=== PATIENT | male | born 1965 | race Caucasian/White ===

== ENCOUNTER 2020-05-07 14:01 | Emergency (ER) | payer BC, SELFPAY ==
[2020-05-07 14:11] VITALS: BP 127/81; PULSE 102; RESP 14; TEMP 36.1; O2SAT 100
--- NOTE | 2020-05-07 14:16 | ED.GENADULT ---
HPI - General Adult General Chief complaint: Upper Respiratory Infection Stated complaint: Sinus Infection Time Seen by Provider: 05/07/20 14:16 Source: patient Mode of arrival: ambulatory Limitations: no limitations History of Present Illness HPI narrative: 54-year-old male patient presents to the [facility] with complaints of a cough for the past 3 days. Patient states he is also had a little bit of congestion and runny nose. Denies fevers, body aches or chills. Denies any ear pain. Denies any sore throat. Denies any chest pain, shortness of breath, abdominal pain, nausea, vomiting or diarrhea. Patient denies getting a flu shot this year. Patient states he has been taking some [id number] Mucinex for his symptoms. Patient denies being around anybody with Covid that he is aware of. Related Data Home Medications Medication Instructions Recorded Confirmed No Home Medications 05/07/20 05/07/20 Allergies Allergy/AdvReac Type Severity Reaction Status Date / Time No Known Allergies Allergy Verified 05/07/20 14:20 Review of Systems Review of Systems: Narrative: CONSTITUTIONAL: Denies fever, chills, or sweats. EYES: Denies visual changes, redness, or discharge. ENT: Positive rhinorrhea, congestion, denies sore throat, or otalgia. CARDIOVASCULAR: Denies chest pain, palpitations, or edema. RESPIRATORY: Positive cough, denies dyspnea. GASTROINTESTINAL: Denies abdominal pain, nausea, vomiting, or diarrhea. GENITOURINARY: Denies dysuria or hematuria. SKIN: Denies rash or itching. MUSCULOSKELETAL: Denies back pain, joint pain, or myalgia. NEUROLOGIC: Denies headache, numbness, or weakness. PSYCHIATRIC: Denies anxiety or depression. [facility] Past Medical History Medical History (Updated 05/07/20 @ 14:28 by BREANNA Banks) No significant past medical history Comments At the time of my signature I agree with nursing past medical history, surgical, social, and family history. There is no relevant family history pertinent to the presenting complaint. Exam Narrative: Exam Narrative: GENERAL: Well-appearing, well-nourished, and in no acute distress. HEAD: Normocephalic, atraumatic. EYES: PERRLA and EOMI. ENT: Nares with erythema and edema noted bilaterally, no rhinorrhea or epistaxis. Mucous membranes moist. Posterior pharynx with no erythema, tonsillar joint, exudates or lesions present. Bilateral TMs are clear no erythema or foreign bodies to the canal. NECK: Supple. No lymphadenopathy CHEST: Clear to auscultation. No respiratory distress. HEART: Regular rate and rhythm. No murmur heard. Normal peripheral pulses. ABDOMEN: Soft, nontender, nondistended, normal active bowel sounds. EXTREMITIES: Normal range of motion. No edema. SKIN: Warm, dry, no rash. NEURO: No focal deficits. Alert and oriented x3. Course Vital Signs Vital signs: Vital Signs Temperature 36.1 C L 05/07/20 14:11 Pulse Rate 102 H 05/07/20 14:11 Respiratory Rate 14 05/07/20 14:11 Blood Pressure 127/81 05/07/20 14:11 Pulse Oximetry 100 05/07/20 14:11 Temperature 36.1 C L 05/07/20 14:20 Pulse Rate 102 H 05/07/20 14:20 Respiratory Rate 14 05/07/20 14:20 Blood Pressure 127/81 05/07/20 14:20 Pulse Oximetry 100 05/07/20 14:20 Vital signs reviewed Medical Decision Making Differential Diagnosis Differential Diagnosis: Differential diagnosis: Allergic rhinitis, chronic sinusitis, tonsillitis, acute sinusitis, infectious mononucleosis, seasonal influenza, pertussis, diphtheria, meningococcal disease, viral syndrome, viral bronchitis, RSV, COVID-19 Discussed with patient that I think we need to send him for testing for coronavirus. Discussed with him that he can continue taking the Mucinex for his symptoms and encourage lots of rest and increase and fluids. Discussed with patient's very important that he remains quarantine away from other family members at this time until he has received his test results. Patient
[2020-05-07 14:20] VITALS: BP 127/81; PULSE 102; RESP 14; TEMP 36.1; O2SAT 100
== END 2020-05-07 14:33 | disposition home or self-care (01) ==
PROVIDERS: Emergency Provider Nurse Practitioner Family; PCP Family Medicine
DX: J06.9 Acute upper respiratory infection, unspecified (principal); R05 Cough; Z20.828 Contact with and (suspected) exposure to other viral communicable diseases
CPT/HCPCS: 99211; G0463

== ENCOUNTER 2020-05-08 06:54 | Outpatient (NON) | payer BC, SELFPAY ==
[2020-05-08 22:09] LABS: SARS-CoV-2 RNA PCR Positive
== END 2020-05-08 06:55 ==
PROVIDERS: PCP Family Medicine; Visit Provider Nurse Practitioner Family
DX: U07.1 COVID-19 (principal)
CPT/HCPCS: 87635; C9803; U0003

== ENCOUNTER 2020-11-01 12:37 | Emergency (ER) | payer OTHER, BC, SELFPAY ==
--- NOTE | ~2020-11-01 | XR_ITS ---
XR knee RT min 4V 11/01/2020 13:18 INDICATION: Knee pain after trauma PROCEDURE: 4 views right knee COMPARISON: No prior studies for comparison. FINDINGS: Fracture, dislocation or subluxation is not identified. Moderate joint effusion. There is p repatellar soft tissue swelling. No foreign bodies are identified. IMPRESSION: 1: No acute fracture. 2: Moderate joint effusion with prepatellar soft tissue swelling. Reviewed, dictated and finalized at location B.
[2020-11-01 12:52] VITALS: BP 125/84; PULSE 86; RESP 18; TEMP 37.1; O2SAT 99
[2020-11-01 12:55] VITALS: BP 125/84; PULSE 86; RESP 18; TEMP 37.1; O2SAT 99
--- NOTE | 2020-11-01 14:01 | ED.LOWEXIN ---
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 EYES: Denies visual changes, redness, discharge. ENT: Denies rhinorrhea, congestion, sore throat, otalgia. CARDIOVASCULAR: Denies chest pain, palpitations, edema. RESPIRATORY: Denies dyspnea, wheezing, cough GASTROINTESTINAL: Denies abdominal pain, nausea, vomiting, diarrhea. GENITOURINARY: Denies dysuria, hematuria, abnormal discharge SKIN: Denies rash or itching. NEUROLOGIC: Denies numbness, or focal weakness. PSYCHIATRIC: Denies anxiety or depression. Right upper thigh PMFSH Past Medical History Medical History (Updated 11/01/20 @ 14:35 by Debbie Franz CNP) A-fib Chronic anticoagulation No significant past medical history Social History Social History (Updated 11/01/20 @ 14:04 by Debbie Franz CNP) Smoking status: Never smoker Alcohol intake: current Comments At time of signature, I agree with nursing past medical, surgical, social and family history. There is no relevant family history pertinent to the presenting complaint. Exam Narrative: Exam Narrative: GENERAL: This is a well-nourished, well-developed patient, in mild distress. HEAD: normocephalic, atraumatic. EYES: PERRL. Sclera clear/white. Vision is grossly intact. EARS: External ears normal, auditory canals clear and without drainage, TMs normal without perforation. Hearing grossly intact. NOSE: External nose normal without nasal discharge, nares without redness, no rhinorrhea. THROAT: Mucous membranes moist, posterior pharynx NECK: Neck supple, non-tender CARDIOVASCULAR: Regular rate and rhythm without murmurs, gallops, or rubs. RESPIRATORY: Clear to auscultation. Breath sounds equal bilaterally. No wheezes, rales, or rhonchi. GASTROINTESTINAL: Abdomen soft, non-tender, SKIN: warm, intact with no suspicious lesions or rash, good texture and turgor. NEURO: awake, alert, and oriented to person, place and time. There were no obvious focal neurologic abnormalities. Steady gait EXTREMITIES: Normal range of motion on L, on R, has induration on the lateral part of the lower thigh and fusion above right knee. Pain on movement, 2+ pedal pulse BACK: Nontender without deformity Course Course Emergency Course: Patient came to [facility] after being hit in the upper thigh with a pipe yesterday X-ray is negative for fracture there is a moderate joint effusion with prepatellar soft tissue swelling Patient placed in the immobilizer Because he is on Eliquis , he has been told not to take any other meds and pain medication Patient is to elevate and ice his leg, activity as tolerated Vital Signs Vital signs: Vital Signs Temperature 98.8 F 11/01/20 12:52 Pulse Rate 86 11/01/20 12:52 Respiratory Rate 18 11/01/20 12:52 Blood Pressure 125/84 11/01/20 12:52 Pulse Oximetry 99 11/01/20 12:52 Temperature 98.8 F 11/01/20 12:55 Pulse Rate 86 11/01/20 12:55 Respiratory Rate 18 11/01/20 12:55 Blood Pressure 125/84 11/01/20 12:55 Pulse Oximetry 99 11/01/20 12:55 MDM - Ex
--- NOTE | 2020-11-01 14:29 | PC.NURSE ---
PT DECLINED ICE FOR COMFORT AND WHEELCHAIR TO RADIOLOGY
== END 2020-11-01 14:40 | disposition home or self-care (01) ==
PROVIDERS: Emergency Provider Nurse Practitioner; PCP Family Medicine
DX: M25.461 Effusion, right knee (principal); I48.91 Unspecified atrial fibrillation; Z79.01 Long term (current) use of anticoagulants
CPT/HCPCS: 73564; 99213; G0463; L1830

== ENCOUNTER 2021-02-24 17:29 | Emergency (ER) | payer BC, SELFPAY ==
[2021-02-24 17:36] VITALS: BP 130/74; PULSE 69; RESP 16; TEMP 36.5; O2SAT 100
--- NOTE | 2021-02-24 18:23 | ED.NAVMDI ---
HPI - Nausea/Vomiting/Diarrhea General Chief complaint: Nausea/Vomiting/Diarrhea Stated complaint: Diarrhea Time Seen by Provider: 02/24/21 18:23 Source: patient and RN notes reviewed Mode of arrival: ambulatory Limitations: no limitations History of Present Illness HPI Narrative: 55-year-old male presents with concern for diarrhea for 8 days. Reports he has worsening diarrhea after he eats. Reports approximately 3-5 diarrhea stools daily. Denies any improvement over the last 8 days and frequency of diarrhea stools. He denies abdominal pain. Reports one episode of Vomiting, denies subsequent nausea or vomiting. Denies fever. Denies recent traveling, hospitalization, antibiotic treatments. He reports he has been having normal amount of urine output and trying to stay hydrated. MD elicited complaint: diarrhea Related Data Home Medications Medication Instructions Recorded Confirmed amiodarone [Pacerone] 100 mg PO DAILY 11/01/20 02/24/21 apixaban [Eliquis] 2.5 mg PO DAILY 11/01/20 02/24/21 metoprolol succinate 12.5 mg PO DAILY 11/01/20 02/24/21 Allergies Allergy/AdvReac Type Severity Reaction Status Date / Time No Known Allergies Allergy Verified 11/01/20 12:52 Review of Systems Review of Systems: CONSTITUTIONAL: Denies malaise, chills, sweats, or fever. ENT: Denies rhinorrhea, congestion, sinus pain, otalgia or sore throat. CARDIOVASCULAR: Denies chest pain, palpitations, or edema. RESPIRATORY: Denies cough or dyspnea. GASTROINTESTINAL: Denies abdominal pain, bloody, or mucous stools. Reports frequent diarrhea, 1 episode of vomiting GENITOURINARY: Denies dysuria or hematuria. MUSCULOSKELETAL: Denies myalgia. All systems reviewed & are unremarkable except as noted in HPI and below PMFSH Past Medical History Medical History (Updated 02/24/21 @ 18:36 by Teodora Peraza NP) A-fib Chronic anticoagulation No significant past medical history Social History Social History (Updated 11/01/20 @ 14:04 by Debbie Franz CNP) Smoking status: Never smoker Alcohol intake: current Comments At time of signature, agree with nursing past medical, surgical, social and family history. There is no relevant family history pertinent to the presenting complaint Exam Narrative: GENERAL: Well-appearing, well-nourished, and in no acute distress. HEAD: Normocephalic, atraumatic. EYES: PERRLA, conjunctivae clear, and EOMI. ENT: Nares clear, turbinates pink, no rhinorrhea or epistaxis. Mucous membranes moist. Oropharynx without edema, erythema, or lesions. Tonsils not enlarged and without exudate. NECK: Supple. No lymphadenopathy CHEST: Speaks in full sentences. No respiratory distress. HEART: Regular rate and rhythm. ABDOMEN: Soft, flat, nondistended. No guarding, rebound tenderness, or rigid. No pulsatilla masses. Bowel sounds present in all four quadrants. No organomegaly. Negative Logan?s sign. No periumbilical tenderness. No Supra public tenderness or distension. Good femoral pulses bilaterally. No hernia noted. No scars or surface trauma. SKIN: Warm, dry, no rash. NEURO: Alert and oriented x3. PSYCH: Normal mood and affect Course Course Emergency Course: Patient is aware of diagnosis, understands and agrees to treatment plan. Anticipatory guidance given. Patient agrees to follow-up as directed and is aware of reasons to seek care at the emergency department. Portions of this record may have been created with voice recognition software Vital Signs Vital signs: Vital Signs Temperature 97.7 F 02/24/21 17:36 Pulse Rate 69 02/24/21 17:36 Respiratory Rate 16 02/24/21 17:36 Blood Pressure 130/74 02/24/21 17:36 Pulse Oximetry 100 02/24/21 17:36 Temperature 97.7 F 02/24/21 17:36 Pulse Rate 69 02/24/21 17:36 Respiratory Rate 16 02/24/21 17:36 Blood Pressure 130/74 02/24/21 17:36 Pulse Oximetry 100 02/24/21 17:36 Reviewed. MDM - Nausea/Vomiting/Diarrhea MDM Narrative Medic
[2021-02-24] MEDS: LIDOCAINE HCL 1% LOCAL INJ 20 ML VIAL INFILTRATE (18:58)
[2021-02-24] MEDS: cefTRIAXone 1 GM VIAL 0.25 GM IM (18:59)
== END 2021-02-24 19:25 | disposition home or self-care (01) ==
PROVIDERS: Emergency Provider Nurse Practitioner; PCP Family Medicine
DX: R19.7 Diarrhea, unspecified (principal); I48.91 Unspecified atrial fibrillation; Z79.01 Long term (current) use of anticoagulants
CPT/HCPCS: 96372; 99213; G0463; J0696

== ENCOUNTER 2021-08-26 14:32 | Emergency (ER) | payer OTHER, BC, SELFPAY ==
--- NOTE | ~2021-08-26 | XR_ITS ---
EXAMINATION: XR foot RT min 3V DATE: 08/26/2021 15:18 INDICATION: Right foot injury and pain and swelling. TECHNIQUE: 4 views of right foot were obtained. COMPARISON: None. FINDINGS: Bone alignment is normal. There is an oblique fracture of distal fibula. There is mild oste oarthrosis of talonavicular joint and first metatarsophalangeal joint. IMPRESSION: 1. Oblique fracture of distal fibula. 2. Mild polyarticular osteoarthritis. Reviewed, dictated and finalized at location B.
--- NOTE | ~2021-08-26 | XR_ITS ---
EXAMINATION: XR tibia fibula RT 2V DATE: 08/26/2021 15:19 INDICATION: Pain and swelling and bruising at the right foot post injury TECHNIQUE: AP and lateral views of the right lower leg were obtained on overlapping proximal and dist al images. COMPARISON: None. FINDINGS: There is an oblique fracture through the distal fibula with a fracture plane exiting medially at the level of the tibiotalar joint with one cortical width lateral displacement. The fracture line has a s ubacute appearance however no productive changes of healing are yet apparent. Minute calcific density along the tip of the medial malleolus suspicious for an avulsion fracture with minimal asymmetric wi dening of the medial clear space. Joint spaces are otherwise normal. Soft tissue swelling about the l ateral malleolus. Small Achilles calcaneal spur. IMPRESSION: 1. [Minimally displaced subacute appearing oblique fracture of the distal left fibula consistent with a Damian type B injury pattern. 2. Likely tiny avulsion fracture fragments at the tip of the medial malleolus with slight widening of the medial clear space. Reviewed, dictated and finalized at location A. IMPRESSION: 1. [Minimally displaced subacute appearing oblique fracture of the distal left fibula consistent with a Damian type B injury pattern. 2. Likely tiny avulsion fracture fragments at the tip of the medial malleolus w ith slight widening of the medial clear space.
[2021-08-26 14:45] VITALS: BP 137/86; PULSE 96; RESP 20; TEMP 36.8; O2SAT 99
--- NOTE | 2021-08-26 15:50 | ED.LOWEXIN ---
HPI - Extremity Injury (Lower) General Chief Complaint: Extremity Injury, Lower Stated Complaint: Right Ankle/Foot Injury Time Seen by Provider: 08/26/21 15:25 Source: patient, RN notes reviewed and old records reviewed Mode of arrival: wheelchair Limitations: no limitations History of Present Illness HPI Narrative: 55 year old male accompanied by spouse presents via wheelchair with complaints of injury to his right foot and ankle which occurred yesterday at approximately noon while he was at work. 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 He has noted swelling and bruising to the right foot and ankle with some redness up to anterior espinoza. Patient has been taking Tylenol and has been applying ice to his right foot and ankle. Pulses palpable and verified per Doppler. Patient states that he is suppose to go off his Eliquis on the for a procedure for biopsy of some lung nodules that were found when he had COVID, scheduled for procedure at [place]. complaint: ankle injury (right) and foot injury Onset (ago): day(s) (yesterday around noon) Type of Injury: blunt and other (rolled foot and fell) Place: work Severity scale (1-10): 8 Exacerbating factors: weight bearing and movement Context: fall Associated symptoms: swelling and unable to bear weight Other symptoms: none Treatments prior to arrival: cold therapy and other (Tylenol) Related Data Home Medications Medication Instructions Recorded Confirmed metoprolol succinate 12.5 mg PO DAILY 11/01/20 08/26/21 apixaban [Eliquis] 5 mg PO BID 08/26/21 08/26/21 Allergies Allergy/AdvReac Type Severity Reaction Status Date / Time No Known Allergies Allergy Verified 08/26/21 15:02 Review of Systems Review of Systems: CONSTITUTIONAL: Denies fever, chills, or sweats. EYES: Denies visual changes, redness, or discharge. ENT: Denies rhinorrhea, congestion, sore throat, or otalgia. CARDIOVASCULAR: Denies chest pain, palpitations, or edema. RESPIRATORY: Denies cough or dyspnea. GASTROINTESTINAL: Denies abdominal pain, nausea, vomiting, or diarrhea. GENITOURINARY: Denies dysuria or hematuria. SKIN: Denies rash or itching. MUSCULOSKELETAL: Denies back pain, positive for right ankle and foot pain with swelling and inability to bear weight to right foot., or myalgia. NEUROLOGIC: Denies headache, numbness, or weakness. PSYCHIATRIC: Denies anxiety or depression. All systems reviewed & are unremarkable except as noted in HPI and below PMFSH Past Medical History Medical History (Updated 08/27/21 @ 11:55 by Alvina Storey NP) A-fib Chronic anticoagulation COVID-19 Lung nodules Surgical History Surgical History (Updated 08/27/21 @ 00:29 by Alvina Storey NP) Hx of tonsillectomy Social History Social History (Updated 08/27/21 @ 11:55 by Alvina Storey NP) Smoking status: Never smoker Alcohol intake: current Substance use: never Substance use type: does not use Living arrangements: with family Gender identity (if verbalized by the patient): Male Exam Narrative: GENERAL: Well-appearing, well-nourished, and in some acute distress related to pain and injury of right ankle HEAD: Normocephalic, atraumatic. EYES: PERRLA and EOMI. ENT: Nares clear, no rhinorrhea or epistaxis. Mucous membranes moist.TM's normal with good light reflex, throat normal with no tonsils present. NECK: Supple.no lymphadenopathy CHEST: Clear to auscultation. No respiratory distress.SAO2 99% on room air HEART: Regular rate and rhythm. No murmur heard. Normal peripheral pulses. ABDOMEN: Soft, nontender, nondistended, normal active bowel sounds. EXTREMITIES: Normal range of motion. No edema Exception noted to right ankle and foot with swelling bruising noted and some redness to anterior foot radiating to to istal espinoza region, pulses palpable and verified with Doppler, acute pain noted to lateral aspect
== END 2021-08-26 16:50 | disposition home or self-care (01) ==
PROVIDERS: Emergency Provider Registered Nurse; PCP Family Medicine
DX: S82.831A Other fracture of upper and lower end of right fibula, initial encounter for closed fracture (principal); S82.51XA Displaced fracture of medial malleolus of right tibia, initial encounter for closed fracture; W55.42XA Struck by pig, initial encounter; Y99.0 Civilian activity done for income or pay; I48.91 Unspecified atrial fibrillation; Z79.01 Long term (current) use of anticoagulants; Z86.16 Personal history of COVID-19
CPT/HCPCS: 29515; 73590; 73630; 99214; G0463

== ENCOUNTER 2022-08-05 14:06 | Emergency (ER) | payer BC, SELFPAY ==
--- NOTE | ~2022-08-05 | XR_ITS ---
EXAMINATION: XR abdomen/kub 1V INDICATION: Right lower quadrant pain TECHNIQUE: Supine views of the abdomen were obtained on 2 radiographs. COMPARISON: None FINDINGS: The bowel gas pattern is normal. The visualized lung bases are clear. There are no dilated loops of bowel. No free intraperitoneal gas is identified. IMPRESSION: 1. No radiographic correlate for the patient's symptoms. Reviewed, dictated and finalized at location F.
[2022-08-05 14:08] VITALS: BP 142/77; PULSE 86; RESP 16; TEMP 37; O2SAT 100
--- NOTE | 2022-08-05 15:12 | ED.GENADULT ---
HPI - General Adult General Chief complaint: Wound/Laceration Stated complaint: Brusie on Right Side Time Seen by Provider: 08/05/22 15:10 Source: patient, RN notes reviewed and old records reviewed Mode of arrival: ambulatory Limitations: no limitations History of Present Illness HPI narrative: 56 year old male who presents to express care with complaints of bruising and discomfort to his right lateral side for 1 week duration with small bruised area noted. Patient denies any known injury, concerned since he is on blood thinner and has some pain to area with movements Patient reports normal urination with no visualized blood or any changes in bowel movement. 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 Patient requests work note. MD complaint: discomfort lateral aspect of right abdomen Onset (ago): week(s) (1) Severity scale (1-10): 6 Quality: aching and other (tender to palpation) Treatments prior to arrival: none Related Data Home Medications Medication Instructions Recorded Confirmed apixaban 5 mg tablet (Eliquis) 5 mg PO BID 08/05/22 08/05/22 metoprolol succinate 25 mg 12.5 mg PO DAILY 08/05/22 08/05/22 tablet,extended release 24 hr Allergies Allergy/AdvReac Type Severity Reaction Status Date / Time No Known Allergies Allergy Verified 08/05/22 14:27 Review of Systems Review of Systems: CONSTITUTIONAL: Denies fever, chills, or sweats. EYES: Denies visual changes, redness, or discharge. ENT: Denies rhinorrhea, congestion, sore throat, or otalgia. CARDIOVASCULAR: Denies chest pain, palpitations, or edema. RESPIRATORY: Denies cough or dyspnea. GASTROINTESTINAL: Denies abdominal pain, nausea, vomiting, or diarrhea. GENITOURINARY: Denies dysuria or hematuria. SKIN: Denies rash or itching, 2cm diameter bruised are to lateral right side, minimal firmness to area tender to palpation MUSCULOSKELETAL: Denies back pain, joint pain, or myalgia. NEUROLOGIC: Denies headache, numbness, or weakness. PSYCHIATRIC: Denies anxiety or depression. All systems reviewed & are unremarkable except as noted in HPI and below PMFSH Past Medical History Medical History (Updated 08/06/22 @ 00:00 by Background Daemon) A-fib Chronic anticoagulation COVID-19 Lung nodules Surgical History Surgical History (Updated 08/27/21 @ 00:29 by Alvina Storey NP) Hx of tonsillectomy Social History Social History (Updated 08/27/21 @ 11:55 by Alvina Storey NP) Smoking status: Never smoker Alcohol intake: current Substance use: never Substance use type: does not use Living arrangements: with family Gender identity (if verbalized by the patient): Male Comments At time of signature, agree with nursing past medical, surgical, social and family history. There is no relevant family history pertinent to the presenting complaint Exam Narrative: GENERAL: Well-appearing, well-nourished, and in no acute distress. HEAD: Normocephalic, atraumatic. EYES: PERRLA and EOMI. ENT: Nares clear, no rhinorrhea or epistaxis. Mucous membranes moist.T's normal with good light reflex, throat pink with no swelling NECK: Supple.no lymphadenopathy CHEST: Clear to auscultation. No respiratory distress.SAO2 100% on room air HEART: Regular rate and rhythm. No murmur heard. Normal peripheral pulses. ABDOMEN: Soft, nontender, nondistended, normal active bowel sounds. EXTREMITIES: Normal range of motion. No edema. SKIN: Warm, dry, no rash.2cm diameter area to lateral right side, some minimal firmness to tissue tender to palpation,patient is on blood thinner. NEURO: No focal deficits. Alert and oriented x3. Course Course Emergency Course: Patient is aware of diagnosis, understands and agrees to treatment plan.? Anticipatory guidance given.? Patient agrees to follow-up as directed and is aware of reasons to seek care at the emergency department. Portions of this record may have been created with
== END 2022-08-05 16:05 | disposition home or self-care (01) ==
PROVIDERS: Emergency Provider Registered Nurse; PCP Family Medicine
DX: S30.1XXA Contusion of abdominal wall, initial encounter (principal); X58.XXXA Exposure to other specified factors, initial encounter; I48.91 Unspecified atrial fibrillation; Z79.01 Long term (current) use of anticoagulants; Z86.16 Personal history of COVID-19
CPT/HCPCS: 74018; 81003; 99213; G0463

== ENCOUNTER 2022-10-01 08:52 | Emergency (ER) | payer BC, SELFPAY ==
[2022-10-01 08:58] VITALS: BP 145/88; PULSE 68; RESP 20; TEMP 36.5; O2SAT 100
--- NOTE | 2022-10-01 09:01 | ED.HA ---
HPI - Headache General Chief Complaint: Unspecified Stated Complaint: headache Time Seen by Provider: 10/01/22 09:01 Source: patient and RN notes reviewed History of Present Illness HPI Narrative: Patient is a 57-year-old male who presents to urgent care with complaints of ?feeling like his head is floating and someone pulled his hair?. Patient states he has had a headache on both sides since Wednesday. States he has been taking Mucinex for possible sinus headache as well as Tylenol. Patient is a poor historian but states he is on a blood thinner. States that he attempted to call his PCP in which he was unable to schedule appointment. Patient currently denies any dizziness, vision change, weakness or numbness. Denies any chest discomfort or shortness of breath. No other acute complaints. No acute distress noted. Patient aware of the plan of care. Some parts of this dictation were generated by voice recognition software and may contain typographical and/or grammatical inaccuracies. Related Data Home Medications Medication Instructions Recorded Confirmed apixaban 5 mg tablet (Eliquis) 5 mg PO BID 08/05/22 10/01/22 metoprolol succinate 25 mg 12.5 mg PO DAILY 08/05/22 10/01/22 tablet,extended release 24 hr Allergies Allergy/AdvReac Type Severity Reaction Status Date / Time No Known Allergies Allergy Verified 10/01/22 09:12 Review of Systems Review of Systems: CONSTITUTIONAL: Denies fever, chills, or sweats. EYES: Denies visual changes, redness, or discharge. ENT: Denies rhinorrhea, congestion, sore throat, or otalgia. CARDIOVASCULAR: Denies chest pain, palpitations, or edema. RESPIRATORY: Denies cough or dyspnea. GASTROINTESTINAL: Denies abdominal pain, nausea, vomiting, or diarrhea. GENITOURINARY: Denies dysuria or hematuria. SKIN: Denies rash or itching. MUSCULOSKELETAL: Denies back pain, joint pain, or myalgia. NEUROLOGIC: Reports headache All other systems reviewed are negative, except as documented in HPI. [facility] Past Medical History Medical History (Updated 10/01/22 @ 09:23 by BREANNA Howard) A-fib Chronic anticoagulation COVID-19 Lung nodules Surgical History Surgical History (Updated 08/27/21 @ 00:29 by Alvina Storey NP) Hx of tonsillectomy Social History Social History (Updated 08/27/21 @ 11:55 by Alvina Storey NP) Smoking status: Never smoker Alcohol intake: current Substance use: never Substance use type: does not use Living arrangements: with family Gender identity (if verbalized by the patient): Male Comments At the time of my signature, I reviewed and agree with the nursing past medical, surgical, social, and family history. There is no relevant family history pertinent to the patient complaint. Exam Narrative: GENERAL: This is a well-nourished, well-developed patient, in no apparent distress. HEAD: normocephalic, atraumatic. EYES: PERRL. Sclera clear/white. Vision is grossly intact. EARS: External ears normal NOSE: External nose normal with no obvious nasal discharge, nares without redness, no rhinorrhea. THROAT: Mucous membranes moist NECK: Neck supple, non-tender without lymphadenopathy, masses or thyromegaly. CARDIOVASCULAR: Regular rate and rhythm without murmurs, gallops, or rubs. RESPIRATORY: Clear to auscultation. Breath sounds equal bilaterally. No wheezes, rales, or rhonchi. SKIN: warm, intact with no suspicious lesions or rash, good texture and turgor. NEURO: awake, alert, and oriented to person, place and time. There were no obvious focal neurologic abnormalities. EXTREMITIES: No clubbing, cyanosis, or edema. Course Course Level of Care: Express Care Visit Vital Signs Vital signs: Vital Signs Temperature 97.7 F 10/01/22 08:58 Pulse Rate 68 10/01/22 08:58 Respiratory Rate 20 10/01/22 08:58 Blood Pressure 145/88 H 10/01/22 08:58 Pulse Oximetry 100 10/01/22 08:58 Oxygen Delivery Room Air 10/01/22 08
== END 2022-10-01 09:23 | disposition left against medical advice (07) ==
PROVIDERS: Emergency Provider Nurse Practitioner Family; PCP Family Medicine
DX: R51.9 Headache, unspecified (principal); I48.91 Unspecified atrial fibrillation; Z86.16 Personal history of COVID-19; Z79.01 Long term (current) use of anticoagulants
CPT/HCPCS: 99211; G0463

== ENCOUNTER 2024-03-23 12:26 | Emergency (ER) | payer BC, SELFPAY ==
--- NOTE | 2024-03-23 12:37 | ED.HA ---
HPI - Headache General Chief Complaint: Headache Stated Complaint: Headache/Blood Pressure Problem Time Seen by Provider: 03/23/24 12:41 Source: patient, RN notes reviewed and old records reviewed Mode of arrival: ambulatory Limitations: no limitations History of Present Illness HPI Narrative: 58-year-old male to Express Care with complaint of headache for the past 3-4 days. Patient states he is able to control the majority of discomfort at home with [id number] medications. patient also endorsing consistent elevated blood pressure in the mornings (prior to taking HTN meds). Patient states he called his primary care provider but cannot be seen until April. Patient states that he needs a note to return to work. Patient denies visual changes, dizziness, Patient resting comfortably in exam room in no acute distress. Related Data Home Medications Medication Instructions Recorded Confirmed apixaban 5 mg tablet (Eliquis) 5 mg PO BID 08/05/22 03/23/24 metoprolol succinate 25 mg 25 mg PO DAILY 08/05/22 03/23/24 tablet,extended release 24 hr omeprazole 20 mg capsule,delayed 20 mg PO DAILY 03/23/24 03/23/24 release Allergies Allergy/AdvReac Type Severity Reaction Status Date / Time No Known Allergies Allergy Verified 10/01/22 09:12 Review of Systems Review of Systems: All systems reviewed & are unremarkable except as noted in HPI and below Constitutional: Constitutional: Reports as per HPI and Reports headache(s) Eyes: Eyes: Reports no additional eye complaints ENT: Reports system reviewed and no additional complaints, except as documented Cardiovascular: Cardiovascular: Reports no additional cardiovascular complaints, Denies chest pain and Denies dyspnea Respiratory: Respiratory: Reports no additional respiratory complaints, Denies cough and Denies dyspnea Musculoskeletal: Musculoskeletal: Reports no additional musculoskeletal complaints Neurologic: Reports system reviewed and no additional complaints, except as documented Psychiatric: Psychiatric: Reports no additional psychiatric complaints PMFSH Past Medical History Medical History A-fib Chronic anticoagulation COVID-19 Lung nodules Surgical History Surgical History Hx of tonsillectomy Social History Social History Smoking status: Never smoker Alcohol intake: current Substance use: never Substance use type: does not use Living arrangements: with family Gender identity (if verbalized by the patient): Male Comments At the time of my signature, I reviewed and agree with the nursing past medical, surgical, social, and family history. There is no relevant family history pertinent to the patient complaint. Exam Const: General: cooperative, comfortable, no acute distress, alert and well nourished Nutritional Appearance: well nourished Orientation/consciousness: patient oriented x3 Limitations: no limitations HENMT: Head: normal to inspection Ears: external ears normal Face/Nose/Sinus: Normal external nose present, Normal nares present, normal facial exam, No erythema and No edema Face and sinus: normal facial exam, no erythema and no edema Mouth: Yes Normal oral and palatal mucosa present Eyes: General: appearance normal, both eyes and all related structures Neck: Neck: normal visual inspection, full ROM and no meningeal signs Lymphatic: no lymphadenopathy noted and no lymphedema noted Chest: Chest palpation & inspection: normal inspection of the chest Resp: Effort & Inspection: normal respiratory effort and able to speak in complete sentences Auscultation: clear to auscultation bilaterally Cardio: Jugular venous distension: no JVD Rate: regular rate Rhythm: regular rhythm Back/Spine/Pelvis: Cervical Spine: cervical ROM normal Skin: General skin exam: normal color, no rashes or lesions noted and turgor normal Neuro: General: patient oriented x3, gait normal, moves all extremities and no meningeal signs Speech: normal speech Gait exam (Neuro): Normal gait present Extrem: General: normal to inspection, full ROM and capillary refill normal Psych: Appearance: grossly normal and well kempt Course Course Emergency Course: Some parts of this dictation were generated by voice recognition software and may contain typographical and/or grammatical inaccuracies. Level of Care: Express Care Visit Vital Signs Vital signs: Vital Signs Temperature 36.5 C 03/23/24 12:39 Pulse Rate 77 03/23/24 12:39 Respiratory Rate 16 03/23/24 12:39 Blood Pressure 132/91 H 03/23/24 12:39 Pulse Oximetry 100 03/23/24 12:39 Oxygen Delivery Room Air 03/23/24 12:39 Temperature 36.5 C 03/23/24 12:39 Pulse Rate 77 03/23/24 12:39 Respiratory Rate 16 03/23/24 12:39 Blood Pressure 132/91 H 03/23/24 12:39 Pulse Oximetry 100 03/23/24 12:39 Oxygen Delivery Room Air 03/23/24 12:39 reviewed MDM - Headache MDM Narrative Medical decision making narrative: 58-year-old male to Express Care with complaint of headache for the past 3-4 days. Patient states he is able to control the majority of discomfort at home with [id number] medications. patient also endorsing consistent elevated blood pressure in the mornings (prior to taking HTN meds). Patient states he called his primary care provider but cannot be seen until April. Patient states that he needs a note to return to work. Patient denies visual changes, dizziness, Patient resting comfortably in exam room in no acute distress. patient exam unremarkable. Patient tested negative for COVID and influenza clinic. Patient is sitting comfortably in exam room nontoxic in appearance. Patient appropriate for outpatient treatment and follow-up. Discharge instructions reviewed with patient, as well as provided in writing per nursing staff. The instructions also include specific and strict return/GO TO THE ER as well as f/u information. All questions have been answered, and the patient deny any further questions with discharge and discharge plan. Some parts of this dictation were generated by voice recognition software and may contain typographical and/or grammatical inaccuracies. Differential Diagnosis Differential diagnosis: Likely migraine, tension headache, subarachnoid hemorrhage, headache, meningitis, sinusitis and postconcussion syndrome Lab Data Labs: Lab Results 03/23/24 Range/Units 13:25 POC Influenza A Ag Negative (Negative) POC Influenza B Ag Negative (Negative) POC SARS CoV-2 Ag Negative (Negative) Discharge Plan Discharge Clinical Impression: Headache Patient Disposition: Home, Self-Care Condition: Stable Instructions: Acute Headache (ED) Additional Instructions: please see attached instruction regarding headaches and implement suggestions as tolerated as discussed, please take and record your blood pressures at home regularly and follow-up with your primary care provider to discuss your blood pressure management for new or worsening symptoms please go directly to the emergency department Prescriptions: No Action metoprolol succinate 25 mg tablet extended release 24 hr 25 mg PO DAILY Eliquis 5 mg tablet 5 mg PO BID omeprazole 20 mg capsule,delayed release(DR/EC) 20 mg PO DAILY Follow-up/Referrals: Harms,Jasper K., M.D. [Primary Care Provider] - Stand Alone Forms: Work/School Release IP
[2024-03-23 12:39] VITALS: BP 132/91; PULSE 77; RESP 16; TEMP 36.5; O2SAT 100
[2024-03-23 13:27] LABS: EDCOVIDSCREEN Negative (Negative); EDINFLUASCREEN Negative (Negative); EDINFLUBSCREEN Negative (Negative)
== END 2024-03-23 13:35 | disposition home or self-care (01) ==
PROVIDERS: Emergency Provider Nurse Practitioner Family; PCP Family Medicine
DX: R51.9 Headache, unspecified (principal); I10 Essential (primary) hypertension; I48.91 Unspecified atrial fibrillation; Z79.01 Long term (current) use of anticoagulants; Z20.822 Contact with and (suspected) exposure to COVID-19
CPT/HCPCS: 87426; 87804; 99213; G0463

== ENCOUNTER 2024-10-28 17:11 | Emergency (ER) | payer BC, SELFPAY ==
[2024-10-28 17:30] VITALS: BP 147/85; PULSE 69; RESP 16; TEMP 36.7; O2SAT 99
--- NOTE | 2024-10-28 17:47 | ED_ITS ---
HPI - Abdominal Pain General Chief Complaint: Abdominal Pain Stated Complaint: Foreign Body lodged Time Seen by Provider: 10/28/24 17:25 Source: patient, family and RN notes reviewed Mode of arrival: ambulatory Limitations: no limitations History of Present Illness HPI narrative: 59-year-old male presents Express Care complaining of possible food bolus. Patient says approximately 1 hour ago use eating at a alliance party was eating a piece a turkey and states he got a piece is tricky stuck in his esophagus. He feels like he is food stuck in the middle of his chest. Patient said he tried to drink water afterwards to help wash it down in immediately spent the water back up. She has not vomited any other food up. Patient states he still feels a sensation in the middle of his chest. Patient denies any chest pain, shortness of breath, difficulty breathing, nausea, vomiting, diarrhea, abdominal pain, or any other symptoms. She has no history of esophageal strictures or ever having this happen before. Related Data Home Medications ?Medication ?Instructions ?Recorded ?Confirmed ?Last Taken ?Type apixaban 5 mg tablet (Eliquis) 5 mg PO BID 08/05/22 10/28/24 Unknown History metoprolol succinate 25 mg 25 mg PO DAILY 08/05/22 10/28/24 Unknown History tablet,extended release 24 hr omeprazole 20 mg capsule,delayed 20 mg PO DAILY 03/23/24 10/28/24 Unknown History release eye drop 10/28/24 Unknown History Allergies Allergy/AdvReac Type Severity Reaction Status Date / Time No Known Allergies Allergy Verified 10/28/24 17:32 Review of Systems Review of Systems: CONSTITUTIONAL: Denies fever, chills, or sweats. EYES: Denies visual changes, redness, or discharge. ENT: Denies rhinorrhea, congestion, sore throat, or otalgia. CARDIOVASCULAR: Denies chest pain, palpitations, dizziness, lightheadedness, or edema. RESPIRATORY: Denies cough, difficulty breathing, wheezing, or dyspnea. GASTROINTESTINAL: Denies abdominal pain, nausea, vomiting, or diarrhea. Positive for food bolus. GENITOURINARY: Denies dysuria or hematuria. SKIN: Denies rash or itching. MUSCULOSKELETAL: Denies back pain, joint pain, or myalgia. NEUROLOGIC: Denies headache, numbness, or weakness. PSYCHIATRIC: Denies anxiety or depression. All other systems reviewed are negative, except as documented in HPI. [facility] Past Medical History Medical History Lung nodules COVID-19 Chronic anticoagulation A-fib Surgical History Surgical History Hx of tonsillectomy Social History Social History Smoking status: Never smoker Alcohol intake: current Substance use: never Substance use type: does not use Living arrangements: with family Gender identity (if verbalized by the patient): Male Comments At the time of my signature, I reviewed and agree with the nursing past medical, surgical, social, and family history. There is no relevant family history pertinent to the patient complaint. Exam Narrative: GENERAL: This is a well-nourished, well-developed adult, in no apparent distress. They are non ill-appearing, nontoxic appearing. HEAD: normocephalic, atraumatic. EYES: Sclera clear/white. Conjunctiva normal. Vision is grossly intact. Extraocular movements intact EARS: External ears normal, Hearing grossly intact. NOSE: External nose normal THROAT: Mucous membranes moist, posterior pharynx clear, without erythema or swelling. Uvula midline. NECK: Neck supple, non-tender without lymphadenopathy, masses or thyromegaly. CARDIOVASCULAR: Regular rate and rhythm without murmurs, gallops, or rubs. RESPIRATORY: Clear to auscultation. Breath sounds equal bilaterally. No wheezes, rales, or rhonchi. GASTROINTESTINAL: Abdomen soft, non-tender, nondistended. Bowel sounds are active. No hepato-splenomegaly, or palpable masses. No guarding. SKIN: warm, Dry, intact with no suspicious lesions or rash, good texture and turgor. NEURO: awake, alert, and oriented to person, place and time. There were no obvious focal neurologic abnormalities. EXTREMITIES: No joint tenderness, effusion, or edema noted. Course Course Emergency Course: Portions of this record may have been created with voice recognition software Level of Care: Express Care Visit Vital Signs Vital signs: Vital Signs Temperature 98.0 F 10/28/24 17:30 Pulse Rate 69 10/28/24 17:30 Respiratory Rate 16 10/28/24 17:30 Blood Pressure 147/85 H 10/28/24 17:30 Pulse Oximetry 99 10/28/24 17:30 Oxygen Delivery Room Air 10/28/24 17:30 Temperature 98.0 F 10/28/24 17:30 Pulse Rate 69 10/28/24 17:30 Respiratory Rate 16 10/28/24 17:30 Blood Pressure 147/85 H 10/28/24 17:30 Pulse Oximetry 99 10/28/24 17:30 Oxygen Delivery Room Air 10/28/24 17:30 Reviewed Transfer Transfered to: [facility] Transportation: Other (Private vehicle) Transfer rationale: Higher level care, possible food bolus, or a GI consult Accepting physician: Porsche Lentz PA-C MDM - Abdominal Pain MDM Narrative Medical decision making narrative: Symptoms are consistent with a food bolus. Patient is in no respiratory distress, or any apparent distress. Hemodynamically stable. Given patient's symptoms, it is recommend the patient seek a higher level care and proceed immediately to the emergency department for further evaluation management of his symptoms, and a possible GI consult. Patient is agreeable to go to [facility], colored [facility] and spoke to oPrsche Lentz PA-C who is aware this patient accepted the patient for transfer. Patient advised to remain NPO and proceed immediately to the ER. Patient stated spouse with Dr. Rios over to the hospital via private vehicle. Differential Diagnosis Differential diagnosis: Likely abdominal pain, small bowel obstruction and other (Food bolus, esophageal stricture) Critical Care Time Critical Care Time Critical Care Time: No Discharge Plan Discharge Clinical Impression: Esophageal obstruction due to food impaction Patient Disposition: Acute Care Hospital Condition: Stable Patient Language: [place] Prescriptions: No Action metoprolol succinate 25 mg tablet extended release 24 hr 25 mg PO DAILY Eliquis 5 mg tablet 5 mg PO BID omeprazole 20 mg capsule,delayed release(DR/EC) 20 mg PO DAILY eye drop Follow-up/Referrals: Harms,Jasper Ayala M.D. [Primary Care Provider] - Time of Disposition: 17:52
== END 2024-10-28 17:44 | disposition short-term general hospital (02) ==
PROVIDERS: PCP Family Medicine
DX: K22.2 Esophageal obstruction (principal); I48.91 Unspecified atrial fibrillation; Z79.01 Long term (current) use of anticoagulants; Z86.16 Personal history of COVID-19
CPT/HCPCS: 99212; G0463